=== PATIENT | male | born 1955 | race Caucasian/White ===

== ENCOUNTER 2019-09-08 18:17 | Emergency (ER) | payer OTHER ==
[~2019-09-08] VITALS: Ht 177.8 cm; Wt 75.8 kg
[2019-09-08] MEDS ORDERED: METFORMIN HCL500 M3 PO (18:31)
[2019-09-08] MEDS ORDERED: ANTIDEPRESSANT (18:31)
[2019-09-08] MEDS ORDERED: ASA81BEC PO (18:31)
[2019-09-08 19:40] VITALS: BP 156/65
== END 2019-09-08 19:40 | disposition home or self-care (01) ==
LOC: M.ERS 18:17
DX: S01.112A Laceration without foreign body of left eyelid and periocular area, initial encounter (principal); S01.81XA Laceration without foreign body of other part of head, initial encounter; E11.9 Type 2 diabetes mellitus without complications; Z88.2 Allergy status to sulfonamides; Y08.89XA Assault by other specified means, initial encounter; Y93.89 Activity, other specified; Y92.89 Other specified places as the place of occurrence of the external cause; Y99.8 Other external cause status